=== PATIENT | female | born 1950 | race Hispanic/Latino ===

== ENCOUNTER 2017-04-07 14:35 | Emergency (ER) | payer MEDICARE ==
[~2017-04-07] VITALS: Ht 165.1 cm; Wt 101.2 kg
[2017-04-07] MEDS ORDERED: HYDROCODONE/APAP 7.5MG-325MG 1 EA TAB PO STA (23:10)
[2017-04-07 23:44] LABS: BILIRUBIN,URINE 1+ (NEGATIVE); CLARITY,URINE SL CLOUDY (CLEAR); COLOR,URINE AMBER (YELLOW); KETONES,URINE NEGATIVE (NEGATIVE); LEUKOCYTE ESTERASE ,URINE NEGATIVE (NEGATIVE); NITRITE,URINE NEGATIVE (NEGATIVE); PROTEIN,URINE DIPSTICK NEGATIVE (NEGATIVE); URINE UROBILINOGEN 8 mg/dL (0.2 - 1)
[2017-04-07 23:52] LABS: BACTERIA,URINE FEW /HPF; CALCIUM OXALATE CRYSTALS,UR MODERATE (FEW); EPITHELIAL CELLS,URINE FEW /LPF; RBC,URINE 0-5 /HPF (0-5)
--- NOTE | 2017-04-08 03:07 | Diagnostic Imaging Report ---
SP LUMBAR, COMPLETE MIN 4VW HISTORY: Lower back pain COMPARISON: None FINDINGS: Bones: No displaced fracture. Osseous alignment is within normal limits. Joints: Evidence of facet hypertrophy noted at the lower lumbar spine involving L4-5 and L5-S1 levels Soft tissues: The soft tissues appear unremarkable. IMPRESSION: No acute radiographic abnormality. Degenerative changes of the lower lumbar spine involving the facet joints Signed by: Dr. Krishna Loera M.D. on 04/08/2017 3:03 AM
== END 2017-04-08 04:45 | disposition home or self-care (01) ==
LOC: ER 14:35
DX: M54.41 Lumbago with sciatica, right side (principal); S39.012A Strain of muscle, fascia and tendon of lower back, initial encounter
CPT/HCPCS: 72110; 81001; 87086; 99284

== ENCOUNTER 2017-05-27 12:27 | Inpatient (IN) | payer MEDICARE ==
[~2017-05-27] VITALS: Ht 157.5 cm; Wt 91.8 kg
--- OUTSIDE RECORDS SUMMARY | 2017-05-27 12:29 | XMS REPORT ---
[facility] Address Unknown Phone Unavailable Care Team Providers Care Paste Up Copy Camera Operator Name Role Phone MAGGIE LEARY Unavailable Unavailable Problems This patient has no known problems. Allergies, Adverse Reactions, Alerts This patient has no known allergies or adverse reactions. Medications This patient has no known medications. Results Test Description Test Time Test Comments Text Results Atomic Results Result Comments SP LUMBAR, COMPLETE MIN 4VW [place] [address] Patient Name: NELIA YEH MR #: [id number] : 1950 Age/Sex: 66/F Req #: [id number] Adm Physician: Ordered by: MAGGIE LEARY MD Report #: [id number] Location: ER Room/Bed: Procedure: [id number] DX/SP LUMBAR, COMPLETE MIN 4VW Exam Date: 04/07/17 Exam Time: 2350 REPORT STATUS: Signed SP LUMBAR, COMPLETE MIN 4VW HISTORY: Lower back pain COMPARISON: None FINDINGS: Bones: No displaced fracture. Osseous alignment is within normal limits. Joints: Evidence of facet hypertrophy noted at the lower lumbar spine involving L4-5 and L5-S1 levels Soft tissues: The soft tissues appear unremarkable. IMPRESSION: No acute radiographic abnormality. Degenerative changes of the lower lumbar spine involving the facet joints Signed by: Dr. Krishna Loera M.D. on 04/08/2017 3:03 AM Dictated By: KRISHNA SUERO MD 2 Transcribed By: DENA on 04/08/17302 COPY TO: MAGGIE LEARY MD
[2017-05-27] MEDS ORDERED: CYCLOBENZAPRINE5 MG (14:14)
[2017-05-27] MEDS ORDERED: LOSARTAN POTAS100 MG PO (14:15)
[2017-05-27] MEDS ORDERED: MELOXICAM7.5 MG PO (14:16)
[2017-05-27] MEDS ORDERED: POTASSIUM CHLORIDE 20 MEQ TAB CR PO STA (14:43)
[2017-05-27 14:58] LABS: BILIRUBIN,DIRECT 0.7 mg/dL (0.0-5.0)
[2017-05-27] MEDS ORDERED: SODIUM CHLORIDE 0.9% 1000ML 1,000 ML IV SCH (16:00)
[2017-05-27] MEDS ORDERED: LACTULOSE SYRUP 20 GM/30 ML UDC PO ONE (16:00)
--- OUTSIDE RECORDS SUMMARY | 2017-05-27 17:29 | XMS REPORT | Continuity of Care Document ---
Author Author [facility] Organization [facility] Address [address] [place] [address] Phone Unavailable Care Team Providers Care Tying Machine Operator Name Role Phone NO, PCP PCP Unavailable Insurance Providers Guarantor Kecia Carlisle Address [address] [address] [place] [address] Payer Medicare A & B Policy Number [id number] Subscriber's Name Kecia Carlisle Relationship 18 Self / Same As Patient Effective Date 14 Advance Directives Directive Response Recorded Date/Time Does the patient have an advance directive? No 06/02/16 6:12pm If yes, is advance directive on file with [facility]? No 06/02/16 6:12pm If not on file with [facility] will patient provide a copy? Yes 06/02/16 6:12pm Do you have a Directive to Physician? No 05/27/17 12:48pm Do you have a Medical Power of Director Of Nuclear Medicine? No 05/27/17 12:48pm Do you have an out of hospital Do Not Resuscitate Order? No 05/27/17 12:48pm Do you have any special needs we should be aware of? No 05/27/17 12:48pm Do you have a support person here with you today? Yes 05/27/17 12:48pm Did patient receive Notice of Privacy Practices? Yes 05/27/17 12:48pm Did patient receive patient rights and responsibilities? Yes 05/27/17 12:48pm Problems Medical Problem Onset Date Status Hepatic encephalopathy Unknown Hyperammonemia Unknown Hypertension Unknown Hypokalemia Unknown Thrombocytopenia Unknown Medications Current Home Medications Medication Dose Units Route Directions Days Qty Instructions Start Date Cyclobenzaprine Hcl (Flexeril) 5 Mg Tablet 10 Three Times A Day Losartan Potassium 100 Mg Tablet 100 Mg Oral Daily Meloxicam 7.5 Mg Tablet 15 Mg Oral Daily 30 Tab Social History Smoking Status Start Date Stop Date Never Smoker Hospital Discharge Instructions No hospital discharge instruction information available. Plan of Care Discharge Date 05/27/17 5:16pm Disposition ADMITTED Condition at Discharge Stable Prescriptions See Medication Section Functional Status No functional status information available. Allergies, Adverse Reactions, Alerts No known allergies. Immunizations No immunization information available. Vital Signs Acute Vital Signs Vital Response Date/Time Temperature (Fahrenheit) 97.8 degrees F (97.6 - 99.5) 05/27/2017 5:12pm Pulse Pulse Rate (adult) 78 bpm (60 - 90) 05/27/2017 5:12pm Respiratory Rate 16 bpm (12 - 24) 05/27/2017 5:12pm Blood Pressure 146/84 mm Hg 05/27/2017 5:12pm Height 5 ft 2 in 05/27/2017 12:30pm Weight 220 lb 05/27/2017 12:30pm Body Mass Index 40.2 kg/m^2 05/27/2017 12:30pm Results Laboratory Results Test Name Result Units Flags Reference Collection Date/Time Result Date/ Time Comments Urine Color TREVER H YELLOW 04/07/2017 3:28pm 04/07/2017 11:44pm Urine Clarity SL CLOUDY CLEAR 04/07/2017 3:28pm 04/07/2017 11:44pm Urine Specific [place] 1.015 1.010-1.025 04/07/2017 3:28pm 2017 11:44pm Urine pH 6.5 5 - 7 04/07/2017 3:28pm 04/07/2017 11:44pm Urine Leukocyte Esterase NEGATIVE NEGATIVE 04/07/2017 3:28pm 2017 11:44pm Urine Nitrite NEGATIVE NEGATIVE 04/07/2017 3:28pm 04/07/2017 11:44pm Urine Protein NEGATIVE NEGATIVE 04/07/2017 3:28pm 04/07/2017 11:44pm Urine Glucose (UA) NEGATIVE NEGATIVE 04/07/2017 3:28pm 04/07/2017 11: 44pm Urine Ketones NEGATIVE NEGATIVE 04/07/2017 3:28pm 04/07/2017 11:44pm Urine Urobilinogen 8 mg/dL H 0.2 - 1 04/07/2017 3:28pm 04/07/2017 11: 44pm Urine Bilirubin 1+ H NEGATIVE 04/07/2017 3:28pm 04/07/2017 11:44pm Urine Blood NEGATIVE NEGATIVE 04/07/2017 3:28pm 04/07/2017 11:44pm Urine WBC 6-10 /HPF H 0-5 04/07/2017 3:28pm 04/07/2017 11:52pm Urine RBC 0-5 /HPF 0-5 04/07/2017 3:28pm 04/07/2017 11:52pm Urine Bacteria FEW /HPF NONE 04/07/2017 3:28pm 04/07/2017 11:52pm Urine Epithelial Cells FEW /LPF NONE 04/07/2017 3:28pm 04/07/2017 11: 52pm Urine Calcium Oxalate Crystals MODERATE H FEW 04/07/2017 3:28pm 2017 11:52pm Total Bilirubin 1.9 mg/dL H 0.2-1.2 05/27/2017 2:11pm 05/27/2017 2:59pm Direct Bilirubin 0.7 mg/dL 0.0-5.0 05/27/2017 2:11pm 05/27/2017 2:59pm Indirect Bilirubin 1.2 mg/dL 0.3-1.2 05/27/2017 2:11pm 05/27/2017 2: 59pm Ammonia 162 UG/DL H 31-123 05/27/2017 2:11pm 05/27/2017 2:56pm Procedures No procedure information available. Encounters Encounter Location Arrival/Admit Date Discharge/Depart Date Attending Provider Departed Emergency Room [facility] 05/27/17 12:27pm 05/27 5:16pm CASTRO ATWOOD MD Departed Emergency Room [facility] 04/07/17 2:35pm 4:45am MAGGIE LEARY MD
[2017-05-27 17:30] VITALS: BP 202/109
[2017-05-27] MEDS: LOSARTAN POTASSIUM 100 MG TAB PO SCH (18:15)
[2017-05-27] MEDS ORDERED: TRAMADOL HCL 50 MG TAB PO PRN (18:45)
[2017-05-27 18:47] VITALS: BP 202/109
--- NOTE | 2017-05-27 18:49 | Diagnostic Imaging Report ---
PROCEDURE:US GALLBLADDER COMPARISON:None. INDICATIONS:GB/LIVER TECHNIQUE: Faye-scale and color Doppler transverse and longitudinal images of the right upper quadrant of the abdomen were obtained. FINDINGS: The study is compromised due to patient's generous body habitus and bowel gas. Liver: 9.8 cm in right mid-clavicular line. The echotexture is heterogeneous. No masses. Main portal vein: 0.9 cm Gallbladder: Present. Gallbladder sludge cannot be excluded. The gallbladder wall measures 5 mm but there is no evidence of pericholecystic fluid. Common Bile Duct: 0.4 cm Sonographic Corona's sign: Negative Right kidney: Incompletely imaged. Maximum cortical length is 7.6 cm. Normal echogenicity. No solid masses or hydronephrosis. Pancreas: The visualized portions demonstrate no evidence of mass or ductal dilatation. Inferior vena cava: Patent. Aorta: Within normal limits. Ascites: None in the right upper quadrant of the abdomen. CONCLUSION: 1. Comised study as described above. 2. Coarse hepatic echotexture without mass. 3. Mildly thickened gallbladder wall is nonspecific. Normal biliary tree. If there is strong clinical concern for acute cholecystitis, recommend HIDA scan in nuclear medicine. Dictated by: Barbara Rodas M.D. on 05/27/2017 at 18:47 Electronically approved by: Barbara Rodas M.D. on 05/27/2017 at 18:47
--- NOTE | 2017-05-27 18:56 | History and Physical ---
CHIEF COMPLAINT: Confusion. HPI: Ms. Carlisle is a 66-year-old female otherwise in good health has hypertension, follows up with her primary care physician. The daughter has noted that lately she has been confused, forgetful, and is not able to remember things and it was progressively getting worse, so they decided to come to the emergency room. In the ER, patient underwent CT of the head, which was negative. She underwent chemistry, which was within normal limits. Patient underwent urine drug screen, which was negative. She does not have any history of chronic liver disease or hepatitis. Her ammonia level was 162 per the ER report and her total bilirubin was 1.9, AST/ALT was slightly elevated to 49 and 32. She denies any chest pain, nausea, vomiting, diarrhea. REVIEW OF SYSTEMS GENERAL: Denies any fever or chills. HEENT: Denies any head trauma or head injury. ENT: Denies any earache, nosebleed, throat pain. CV: Denies any chest pain. RESPIRATORY: Denies any shortness of breath. GI: Denies any nausea, vomiting. REST OF THE REVIEW OF SYSTEMS: Negative except as in HPI. PAST MEDICAL HISTORY: Hypertension. PAST SURGICAL HISTORY: Unknown. FAMILY AND SOCIAL HISTORY: She lives with her daughter. She works in a cafeteria. She is a lifelong nonsmoker, does not drink. PHYSICAL EXAM VITAL SIGNS: Temperature 98, pulse of 82, blood pressure is 202/109, respiratory rate of 18. SKIN: Warm and dry. GENERAL APPEARANCE: She is a middle-aged female, not in any obvious distress. She is awake and alert, following commands, responds to questions appropriately. HEENT: Head atraumatic, normocephalic. Pupils reactive. NECK: Supple. No JVD. CHEST: Clear to auscultation bilaterally. HEART: S1, S2 audible. ABDOMEN: Soft, nontender, nondistended. Bowel sounds audible. No hepatosplenomegaly. EXTREMITIES: Bilateral pedal edema. NEUROLOGIC: Awake, alert, and following commands. LABS: Her labs are not in the care, but from the emergency room. Sodium 142, potassium 3.5, chloride 107, ALT 32, AST 49, alk phos 174, total bili 1.9. Ammonia was 162. CT of the head was negative. White count of 5.1, hemoglobin 15.3, platelets 135,000. ASSESSMENT AND PLAN: A 66-year-old female with encephalopathy and hyperammonemia, does not have any known history of liver disease; however, abnormal bilirubin and alkaline phosphatase possibility of chronic liver disease versus acute liver issues, acute liver problem. CURRENT PROBLEMS 1. Hyperammonemia. 2. History of hypertension. PLAN 1. Will send off the hepatitis panel. 2. Ultrasound of the liver and gallbladder. 3. CT of the abdomen and pelvis. 4. GI consult. 5. Hydralazine p.r.n. for SBP more than 170 and diastolic more than 100. 6. Resume antihypertensive medications. 7. Lactulose 30 mg b.i.d. for increased ammonia and likely for hepatic encephalopathy. 8. Will follow closely. If the mental status is still a problem, will consider doing MRI of the head as well. 9. Discussed with patient and daughter at bedside in detail. Job#: [id number] CQ
[2017-05-27 20:00] VITALS: BP 197/127
[2017-05-27] MEDS: HYDRALAZINE HCL 20 MG/ML VIAL IV PRN (21:36)
[2017-05-27 21:43] LABS: ANION GAP 12.5 mmol/L (8-16); BLOOD UREA NITROGEN 12 mg/dL (7-26); BUN/CREATININE RATIO 17 (6-25); CALCIUM 8.6 mg/dL (8.4-10.2); CARBON DIOXIDE 23 mmol/L (22-29); CHLORIDE 110 mmol/L (98-107); CREATININE, SERUM 0.69 mg/dL (0.57-1.11); EST GLOMERULAR FILTRATION RATE > 60 ML/MIN (60-); GLUCOSE 99 mg/dL (74-118); POTASSIUM 3.5 mmol/L (3.5-5.1); SODIUM 142 mmol/L (136-145)
[2017-05-27 22:02] LABS: ALBUMIN 2.8 g/dL (3.5-5.0); BILIRUBIN,DIRECT 0.6 mg/dL (0.0-5.0)
[2017-05-27] MEDS ORDERED: SODIUM CHLORIDE 0.9% 50ML 50 ML ONE (22:19)
[2017-05-27] MEDS ORDERED: IOPAMIDOL 370 MG/ML 200 ML INFUS..BTL INJ ONE (22:19)
[2017-05-27 23:18] VITALS: BP 197/127
--- NOTE | 2017-05-27 23:27 | Diagnostic Imaging Report ---
EXAM: CT Abdomen and Pelvis WITH contrast INDICATION: Liver encephalopathy COMPARISON: None. TECHNIQUE: Abdomen and pelvis were scanned utilizing a multidetector helical scanner from the lung base to the pubic symphysis after administration of IV contrast. Coronal and sagittal reformations were obtained. Routine protocol was performed. Scan was performed when during portal venous phase. IV CONTRAST: 100 mL of Isovue-370 ORAL CONTRAST: Water RADIATION DOSE: Total DLP: 651.69 mGy*cm Estimated effective dose: (DLP x 0.015 x size factor) mSv COMPLICATIONS: None FINDINGS: LINES and TUBES: None. LOWER THORAX: Unremarkable HEPATOBILIARY: Minimal contour abnormality of the liver suggestive of micronodular cirrhosis. No focal hepatic lesions. No biliary ductal dilation. GALLBLADDER: No radio-opaque stones or sludge. No wall thickening. SPLEEN: No splenomegaly. PANCREAS: No focal masses or ductal dilatation. ADRENALS: No adrenal nodules KIDNEYS/URETERS: Kidneys enhance symmetrically. No hydronephrosis. No cystic or solid mass lesions. No stones. GI TRACT: No abnormal distention, wall thickening, or evidence of bowel obstruction. There are diverticula within the colon without evidence of diverticulitis. Appendix is normal. PELVIC ORGANS/BLADDER: The uterus is absent. Bilateral ovaries are unremarkable. LYMPH NODES: No lymphadenopathy. VESSELS: There is mild atherosclerotic disease in the aorta and major arterial branches. PERITONEUM / RETROPERITONEUM: No free air or fluid. BONES: There are degenerative changes in the lumbar spine. SOFT TISSUES: Unremarkable. IMPRESSION: 1. Micronodular cirrhosis without evidence of oral hypertension. Signed by: Dr. Krishna Loera M.D. on 05/27/2017 11:23 PM
[2017-05-28] VITALS (7 sets, daily range): BP systolic 139–180; BP diastolic 76–111
[2017-05-28 06:46] LABS: BASOPHILS % 0.9 % (0.0-1.0); EOSINOPHILS # (AUTO) 0.4 (0.0-0.4); EOSINOPHILS % 8.4 % (0.0-6.0); HEMATOCRIT 39.1 % (34.2-44.1); HEMOGLOBIN 13.5 g/dL (12.0-16.0); LYMPHOCYTES # (AUTO) 1.8 (1.0-3.2); LYMPHOCYTES % 38.6 % (18.0-39.1); MEAN CORPUSCULAR HEMOGLOBIN 32.5 pg (28-32); MEAN CORPUSCULAR HGB CONC 34.5 g/dL (31-35); MEAN CORPUSCULAR VOLUME 94.2 fL (81-99); MONOCYTES # (AUTO) 0.7 (0.2-0.8); MONOCYTES % 15.7 % (4.4-11.3); NEUTROPHILS # (AUTO) 1.7 (2.1-6.9); NEUTROPHILS % 36.4 % (38.7-80.0); PLATELET COUNT 112 x10e3/uL (140-360); RED BLOOD COUNT 4.15 x10e6/uL (3.6-5.1); RED CELL DISTRIBUTION WIDTH 14.6 % (11.7-14.4)
[2017-05-28 07:07] LABS: ANION GAP 12.9 mmol/L (8-16); BLOOD UREA NITROGEN 11 mg/dL (7-26); BUN/CREATININE RATIO 17 (6-25); CALCIUM 8.7 mg/dL (8.4-10.2); CARBON DIOXIDE 22 mmol/L (22-29); CHLORIDE 112 mmol/L (98-107); CREATININE, SERUM 0.65 mg/dL (0.57-1.11); EST GLOMERULAR FILTRATION RATE > 60 ML/MIN (60-); GLUCOSE 93 mg/dL (74-118); POTASSIUM 3.9 mmol/L (3.5-5.1); SODIUM 143 mmol/L (136-145)
[2017-05-28] MEDS: LOSARTAN POTASSIUM 100 MG TAB PO SCH (08:10)
[2017-05-28] MEDS ORDERED: LACTULOSE SYRUP 20 GM/30 ML UDC PO ONE (09:00)
[2017-05-28] MEDS: METOPROLOL TARTRATE 25 MG TAB PO SCH (16:50)
[2017-05-28] MEDS: LACTULOSE SYRUP 20 GM/30 ML UDC PO SCH (16:50)
[2017-05-28] MEDS ORDERED: LACTULOSE SYRUP 20 GM/30 ML UDC PO SCH (17:00)
[2017-05-28] MEDS: HYDRALAZINE HCL 20 MG/ML VIAL IV PRN (20:41)
--- NOTE | 2017-05-28 20:41 | Consultation ---
DATE OF CONSULTATION: May 28, 2017 This is a 66-year-old lady who has history of hypertension. She presented to the hospital because of problems of confusion and increasing problem with organ fullness. She was found to have ammonia level of 152 on admission. Her liver enzymes were mildly elevated. Her ultrasound as well as CAT scan showed evidence of cirrhosis. She does not have any history of alcohol abuse, and she never had any history of hepatitis that she knows of. Her other medical problems are significant for history of hypertension, also some back pain. MEDICATIONS: Lactulose, metoprolol, Cozaar, hydralazine and tramadol. ALLERGIES: NONE. SOCIAL HISTORY: Denies any alcohol use. FAMILY HISTORY: Noncontributory. REVIEW OF SYSTEMS: Denies any chest pain, no shortness of breath, denies any dysphagia or odynophagia. Denies any dysuria, hematuria or any kind of syncopal episode. PHYSICAL EXAMINATION GENERAL: The patient is awake, alert, appears to be stable and not in any acute distress. VITAL SIGNS: Afebrile. HEENT: Normocephalic. Sclerae anicteric. NECK: Supple. HEART: Sounds regular. LUNGS: Clear. ABDOMEN: Soft. There is no distention at this point and is nontender. EXTREMITIES: No edema or clubbing. LABORATORY DATA: As of today, BMP appears to be normal. On admission yesterday, 1.5, AST 44, ALT 28, alkaline phosphatase 161. is 152 today and 162 yesterday. Ultrasound and CAT scan showed cirrhosis. IMPRESSION 1. Cirrhosis with hepatic encephalopathy, currently doing better. Etiology of the cirrhosis is unclear. 2. Hypertension. RECOMMENDATIONS: Continue current are at this point. Will obtain hepatitis profile as well as profile. The patient will need to have an upper and lower endoscopy later on as an outpatient. Job#: [id number]
[2017-05-29] VITALS (8 sets, daily range): BP systolic 120–156; BP diastolic 56–77
[2017-05-29] MEDS: LOSARTAN POTASSIUM 100 MG TAB PO SCH (08:46)
[2017-05-29] MEDS: METOPROLOL TARTRATE 25 MG TAB PO SCH ×2 (08:46→17:49)
[2017-05-29] MEDS: LACTULOSE SYRUP 20 GM/30 ML UDC PO SCH ×2 (08:46→17:49)
[2017-05-30] VITALS: BP 103/60
[2017-05-30 04:00] VITALS: BP 122/58
[2017-05-30 07:45] VITALS: BP 122/64
[2017-05-30] MEDS: LOSARTAN POTASSIUM 100 MG TAB PO SCH (09:21)
[2017-05-30] MEDS: LACTULOSE SYRUP 20 GM/30 ML UDC PO SCH (09:21)
[2017-05-30] MEDS: METOPROLOL TARTRATE 25 MG TAB PO SCH (09:22)
[2017-05-30 09:37] VITALS: BP 122/64
[2017-05-30] MEDS ORDERED: LACTULOSE20 GM/30 M PO (10:15)
--- NOTE | 2017-05-30 10:57 | Discharge Summary ---
FINAL DIAGNOSES 1. Cirrhosis of liver. 2. Hepatic encephalopathy. 3. Obesity. 4. Hypertension. ADMISSION HISTORY AND HOSPITAL COURSE: Ms. Carlisle is a 66-year-old female who presented to the emergency room with confusion. The patient's ammonia level was high. Ultrasound of the abdomen and CT of the abdomen and pelvis was done, which showed evidence of cirrhosis of liver. GI was consulted. The patient was continued on lactulose and improved with lactulose. Ammonia level started trending down. Patient became completely awake and alert. She will be discharged home. GI has cleared the patient. The patient will be discharged home to follow up with her primary care physician. She has a history of hypertension. I have added metoprolol for better blood pressure control. She will be on lactulose 30 mL b.i.d. The patient will follow up with GI as well. JUNAID CHRISTIANSON MD Job#: [id number] MS
== END 2017-05-30 11:00 | disposition home or self-care (01) | DRG 433 ==
LOC: FSED 12:27 → MED/SURG3 15:46 → FSED 17:16 → MED/SURG3 17:25 → UNDOADMIN 17:25
PROVIDERS: ADMIT Internal Medicine; ATTEND Internal Medicine
DX: K74.60 Unspecified cirrhosis of liver (principal); E72.20 Disorder of urea cycle metabolism, unspecified; K72.90 Hepatic failure, unspecified without coma; I10 Essential (primary) hypertension; E66.9 Obesity, unspecified; Z68.37 Body mass index [BMI] 37.0-37.9, adult
CPT/HCPCS: 36415; 74177; 76705; 80048; 80076; 82103; 82140; 82248; 82390; 82948; 84155; 85025; 86039; 86255; 99284; J0360; J7030; Q9967